=== PATIENT | male | born 1980 | race Caucasian/White ===

== ENCOUNTER 2016-04-02 15:08 | Emergency (ER) | payer OTHER ==
[~2016-04-02] VITALS: Ht 188 cm; Wt 134.5 kg
[2016-04-02] MEDS ORDERED: VYVANSE70 MG PO (17:30)
[2016-04-02 20:21] LABS: ADD MIUA? YES; BILIRUBIN NEGATIVE; BLOOD LARGE; COLOR YELLOW ((YELLOW)); GLUCOSE (STRIP) NEGATIVE; KETONES NEGATIVE; LEUKOCYTES TRACE; NITRITE NEGATIVE; PH, URINE 7.5 (5-8); PROTEIN (STRIP) NEGATIVE; SPECIFIC GRAVITY 1.011 (1.000-1.030); UROBILINOGEN 0.2 MG/DL (0.2-1.0)
[2016-04-02 20:40] LABS: EOSINOPHIL (%) 0.2 % (0-5); HEMATOCRIT 46.8 % (38.0-50.0); IMMATURE GRANULOCYTE (%) 0.3 % (0.0-0.7); IMMATURE GRANULOCYTE COUNT 0.3 K/uL; LYMPHOCYTE COUNT 0.7 K/uL (1.0-2.8); MCH 28.9 PG (29.0-34.0); MCV 82.4 FL (86-99); MONOCYTE (%) 1.1 % (3-12); MONOCYTE COUNT 0.1 K/uL (0-0.8); NEUTROPHIL (%) 91.8 % (45-76); NEUTROPHIL COUNT 10.6 K/uL (1.8-6.4); PLATELET COUNT 313 K/uL (156-360); RBC DIS.WIDTH-SD 39.2 % (39-53); RED BLOOD COUNT 5.68 M/uL (4.00-5.50); WHITE BLOOD COUNT 11.6 K/uL (4.1-10.2)
[2016-04-02 20:47] LABS: BACTERIA NONE SEEN; CASTS NONE SEEN /LPF; CRYSTALS NONE SEEN; EPITHELIAL CELLS RARE; MUCUS NONE SEEN; PATHOLOGICAL CAST NONE SEEN; RED BLOOD CELLS 40-50 /HPF (0-5); SMALL ROUND CELL NONE SEEN; UCUL ADDED? NO; YEAST-LIKE CELL NONE SEEN
[2016-04-02 20:47] LABS: CHLORIDE 105 mEq/L (99-109); POTASSIUM 4.4 mEq/L (3.7-5.4); SODIUM 136 mEq/L (136-147)
[2016-04-02 20:50] LABS: GLUCOSE 115 mg/dL (70-99)
[2016-04-02 20:51] LABS: ANION GAP 9 MEQ/L (2-14)
[2016-04-02 20:52] LABS: TOTAL BILIRUBIN 0.6 mg/dL (0.0-1.0)
[2016-04-02 20:53] LABS: ALKALINE PHOSPHATASE 49 IU/L (3-129); GFR ESTIMATE (CALCULATED) > 59 mL/min/
[2016-04-02 20:54] LABS: UREA NITROGEN (BUN) 15 mg/dL (9-23)
[2016-04-02] MEDS ORDERED: VALIUM2 MG PO (22:48)
[2016-04-02] MEDS ORDERED: MOTRIN600 MG PO (22:48)
[2016-04-02] MEDS ORDERED: MEDROL DOSEPAK4 MG PO (22:48)
[2016-04-02] MEDS ORDERED: PERCOCET 5/31 TABLET PO (22:48)
[2016-04-02 23:18] VITALS: BP 115/86
== END 2016-04-02 19:18 | disposition home or self-care (01) ==
LOC: EME 15:08
PROVIDERS: Emergency Medicine
DX: M54.41 Lumbago with sciatica, right side (principal)
CPT/HCPCS: 72131; 74176; 80053; 81003; 85025; 99281; 99285; J1100; J1170; J1885